=== PATIENT | male | born 1990 | race Caucasian/White ===

== ENCOUNTER 2018-09-03 11:57 | Emergency (ER) | payer OTHER ==
[~2018-09-03] VITALS: Ht 172.7 cm; Wt 90.0 kg
[2018-09-03 12:10] VITALS: BP 120/77
--- NOTE | 2018-09-03 13:17 | NUR ---
SITTING IN A CHAIR AT THE FOOT OF THE [facility] HOLDING 3-4 YEAR OLD FEMALE CHILD.... PT. BECAME HIGHLY AGGITATED AND STARTED YELLING AT HER. I ENTERED THE ROOM. PT. STATED THAT " SHE IS A BIG BABY AND THAT SHE ALWAYS MAKES THINGS WORSE." STATED THAT SHE WOULD LEAVE BUT SHE NEEDED THE CAR KEYS".. PT. STATED " NO I DO NOT WANT YOU TO LEAVE ME HERE AT THE HOSPITAL". I INFORMED THE PT. THAT HE COULD NOT HOLD HIS HOSTAGE. SHE EITHER COULD STAY OR SHE NEEDED THE TO GO WITH THE KEYS IF SHE WANTED THEM. PT. GAVE THE KEYS TO AND SHE STORMED OUT WITH CHILD IN HER ARMS..... I TOLD THE WICE I WAS SORRY BUT IT WOULD BE SAFER THIS WAY..... PT THEN GOT UP SET AT ME AND SAID THAT I SAID " HE WAS A DANGER TO HIS " I TRIED TO EXPLAIN TO HIM THAT I SAID IT WOULD MAKE IT SAFER, THAT I DID NOT SAY HE WAS DANGEROUS.... PT. STATED HE WAS LEAVING. I EXPLAINED THAT HE COULD NOT LEAVE QUIT YET DO TO HIS COMPLAINT.... LAURA HERNANDEZ TOOK OVER THE CONVERSATION IN A CALM NON THREATNING WAY AND TALKED THE PT. DOWN... PT. IS SITTING CROSS LEGED ON THE [facility] AND HAS SKYLER BOLDEN SEEING HIM AT THIS TIME.
[2018-09-03 14:03] LABS: URINE AMPHETAMINE SCREEN NEGATIVE (Neg); URINE BARBITUATE SCREEN NEGATIVE (Neg); URINE BENZODIAZEPINES SCREEN NEGATIVE (Neg); URINE CANNABINOID SCREEN POSITIVE (Neg); URINE COCAINE SCREEN NEGATIVE (Neg); URINE METHADONE SCREEN NEGATIVE (Neg); URINE OPIATE SCREEN NEGATIVE (Neg); URINE PHENCYCLIDINE SCREEN NEGATIVE (Neg)
--- NOTE | 2018-09-03 14:09 | NUR ---
MESSAGE LEFT FOR FAUSTINO THE PA
[2018-09-03 14:14] LABS: BASOPHILS # (AUTO) 0.1 X10'3 (0-0.2); BASOPHILS % (AUTO) 1.1 % (0-1); EOSINOPHILS # (AUTO) 0.1 X10'3 (0-0.9); EOSINOPHILS % (AUTO) 1.1 % (0-6); HEMATOCRIT 45.1 % (42.0-52.0); HEMOGLOBIN 15.4 g/dl (14.0-17.9); LYMPHOCYTES # (AUTO) 1.6 X10'3 (1.1-4.8); LYMPHOCYTES % (AUTO) 22.4 % (21-51); MEAN CORPUSCULAR HEMOGLOBIN 29.9 PG (27.0-31.0); MEAN CORPUSCULAR VOLUME 87.7 FL (78-98); MEAN PLATELET VOLUME 9.3 FL (7.4-10.4); MONOCYTES # (AUTO) 0.5 X10'3 (0-0.9); MONOCYTES % (AUTO) 6.3 % (2-12); NEUTROPHILS # (AUTO) 4.9 X10'3 (1.8-7.7); NEUTROPHILS % (AUTO) 69.1 % (42-75); PLATELET COUNT 228 X10'3 (140-440); RED BLOOD COUNT 5.15 X10'6 (4.70-6.10); RED CELL DISTRIBUTION WIDTH 13.9 % (11.5-14.5); WHITE BLOOD COUNT 7.1 X10'3 (4.5-11.0)
--- NOTE | 2018-09-03 14:22 | NUR ---
KASEYH PA AT BEDSIDE FOR PSYCH EVAL NOW
[2018-09-03 14:28] LABS: ALANINE AMINOTRANSFERASE 20 U/L (12-78); ALBUMIN 4.1 G/DL (3.4-5.0); ALBUMIN/GLOBULIN RATIO 1.1 (1.1-1.5); ALKALINE PHOSPHATASE 66 IU/L (46-116); ANION GAP 11 (8-16); ASPARTATE AMINO TRANSFERASE 14 U/L (10-37); BILIRUBIN,TOTAL 0.9 MG/DL (0.1-1.0); BLOOD UREA NITROGEN 12 MG/DL (7-18); BUN/CREATININE RATIO 14.5 (5.4-32.0); CALCIUM 9.6 MG/DL (8.5-10.1); CHLORIDE 104 MMOL/L (99-107); CREATININE 0.83 MG/DL (0.60-1.10); GLUCOSE 80 MG/DL (70-104); POTASSIUM 4.2 MMOL/L (3.5-5.1); SODIUM 142 MMOL/L (135-145); TOTAL CARBON DIOXIDE 26.8 MMOL/L (24-32); TOTAL PROTEIN 7.7 G/DL (6.4-8.2); eGFR > 90 ML/MIN
[2018-09-03 14:53] LABS: ETHANOL < 0.010 GM/DL (0.0-0.010)
== END 2018-09-03 15:54 | disposition home or self-care (01) ==
LOC: ER 11:57
DX: F43.20 Adjustment disorder, unspecified (principal); S05.11XA Contusion of eyeball and orbital tissues, right eye, initial encounter; M54.6 Pain in thoracic spine; G89.29 Other chronic pain; F12.90 Cannabis use, unspecified, uncomplicated; Z88.8 Allergy status to other drugs, medicaments and biological substances; Z88.6 Allergy status to analgesic agent; W18.30XA Fall on same level, unspecified, initial encounter; Y93.G3 Activity, cooking and baking; Y92.090 Kitchen in other non-institutional residence as the place of occurrence of the external cause; Y99.8 Other external cause status
CPT/HCPCS: 36415; 80053; 80305; 80320; 85025; 99284

== ENCOUNTER 2018-09-11 13:14 | Emergency (ER) | payer OTHER ==
[~2018-09-11] VITALS: Ht 172.7 cm; Wt 90.0 kg
[2018-09-11 14:32] LABS: BASOPHILS # (AUTO) 0.1 X10'3 (0-0.2); BASOPHILS % (AUTO) 1.3 % (0-1); EOSINOPHILS # (AUTO) 0.2 X10'3 (0-0.9); EOSINOPHILS % (AUTO) 2.5 % (0-6); HEMATOCRIT 44.1 % (42.0-52.0); HEMOGLOBIN 15.3 g/dl (14.0-17.9); LYMPHOCYTES # (AUTO) 2.3 X10'3 (1.1-4.8); LYMPHOCYTES % (AUTO) 30.9 % (21-51); MEAN CORPUSCULAR HEMOGLOBIN 30.2 PG (27.0-31.0); MEAN CORPUSCULAR HGB CONC 34.7 g/dL (33.0-36.5); MEAN PLATELET VOLUME 9.6 FL (7.4-10.4); MONOCYTES # (AUTO) 0.5 X10'3 (0-0.9); MONOCYTES % (AUTO) 7.2 % (2-12); NEUTROPHILS # (AUTO) 4.3 X10'3 (1.8-7.7); NEUTROPHILS % (AUTO) 58.1 % (42-75); PLATELET COUNT 245 X10'3 (140-440); RED BLOOD COUNT 5.07 X10'6 (4.70-6.10); WHITE BLOOD COUNT 7.4 X10'3 (4.5-11.0)
[2018-09-11 14:48] LABS: ALANINE AMINOTRANSFERASE 23 U/L (12-78); ALBUMIN/GLOBULIN RATIO 1.2 (1.1-1.5); ALKALINE PHOSPHATASE 65 IU/L (46-116); AMYLASE 52 U/L (25-115); ANION GAP 7 (8-16); ASPARTATE AMINO TRANSFERASE 13 U/L (10-37); BILIRUBIN,TOTAL 0.6 MG/DL (0.1-1.0); BLOOD UREA NITROGEN 14 MG/DL (7-18); BUN/CREATININE RATIO 17.1 (5.4-32.0); CALCIUM 9.3 MG/DL (8.5-10.1); CHLORIDE 105 MMOL/L (99-107); CREATININE 0.82 MG/DL (0.60-1.10); GLUCOSE 89 MG/DL (70-104); LIPASE 84 U/L (73-393); POTASSIUM 3.9 MMOL/L (3.5-5.1); SODIUM 141 MMOL/L (135-145); TOTAL PROTEIN 7.4 G/DL (6.4-8.2); eGFR > 90 ML/MIN
[2018-09-11 17:27] LABS: CLARITY,URINE CLEAR (Clear); COLOR,URINE YELLOW (Yellow); GLUCOSE, URINE NEGATIVE (Neg); KETONES,URINE 15 mg/dl (Neg); LEUKOCYTE ESTERASE ,URINE NEGATIVE (Neg); NITRITES, URINE NEGATIVE (Neg); OCCULT BLOOD,URINE TRACE-INTACT (Neg); PH,URINE 5.5 (4.8-8.0); PROTEIN,URINE NEGATIVE (Neg); UROBILINOGEN,URINE 0.2 E.U/dL (0.2-1.0)
[2018-09-11 17:31] LABS: UA COLLECTION TYPE CLN CATCH MIDSTREAM
[2018-09-11 17:32] LABS: BACTERIA,URINE NONE SEEN /HPF (Neg); MUCUS STRANDS NONE SEEN /LPF (Neg); RBC,URINE NONE SEEN /HPF (0-2); SQUAMOUS EPITHELIAL CELL,UR NONE SEEN /LPF (FEW); WBC,URINE NONE SEEN /HPF (0-4)
[2018-09-11] MEDS ORDERED: diphenhydrAMINE 50 mg/ml inj IV ONE (17:45)
[2018-09-11] MEDS ORDERED: ketorolac tromethamine 15mg/ml inj. IV ONE (17:45)
[2018-09-11] MEDS ORDERED: proCHLORperazine 10 MG/2 ml inj IV ONE (17:45)
--- NOTE | 2018-09-11 18:15 | NUR ---
PATIENT IS VERY ANXIOUS. HE STATES THAT HE THINKS HE IS HAVING A REACTION TO A MEDICATION.
[2018-09-11 18:56] VITALS: BP 110/52
== END 2018-09-11 18:58 | disposition home or self-care (01) ==
LOC: ER 13:14
DX: R10.11 Right upper quadrant pain (principal); G89.29 Other chronic pain; F12.90 Cannabis use, unspecified, uncomplicated; Z88.6 Allergy status to analgesic agent; Z88.8 Allergy status to other drugs, medicaments and biological substances
CPT/HCPCS: 36415; 76700; 80053; 81001; 82150; 83690; 85025; 85610; 96374; 96375; 99284; J0780; J1200; J1885